=== PATIENT | male | born 1980 | race Caucasian/White ===

== ENCOUNTER 2024-09-27 04:01 | Emergency (ER) | payer BC ==
[~2024-09-27] VITALS: Ht 182.9 cm; Wt 125.0 kg
[2024-09-27 04:05] VITALS: BP_DIAS 142; RESP 18; TEMP 98.4; O2SAT 96
[2024-09-27] MEDS ORDERED: LISI20TA28 PO (04:12)
[2024-09-27 04:20] VITALS: BP_SYST 174; PULSE 110
[2024-09-27] MEDS: metoprolol tartrate 50mg tablet PO ONE (04:20)
== END 2024-09-27 04:22 ==
LOC: ER 04:02
DX: Z02.89 Encounter for other administrative examinations (principal); I10 Essential (primary) hypertension; Z79.899 Other long term (current) drug therapy; Z72.89 Other problems related to lifestyle
CPT/HCPCS: 99283